=== PATIENT | male | born 1980 | race Caucasian/White ===

== ENCOUNTER 2022-03-19 11:18 | Emergency (ER) | payer OTHER ==
[~2022-03-19] VITALS: Ht 190.5 cm; Wt 127.0 kg
[2022-03-19 11:22] VITALS: BP_SYST 139
--- NOTE | 2022-03-19 11:28 | NUR ---
DR MYERS IN WR LOBBY TO SEE PT
[2022-03-19 11:51] LABS: BASOPHILS # (AUTO) 0.1 K/uL (0.0-0.2); BASOPHILS % (AUTO) 0.4 % (0.0-2.0); EOSINOPHILS % (AUTO) 0.2 % (0.0-4.0); HEMATOCRIT 42.8 % (36-54); HEMOGLOBIN 14.4 g/dL (14.0-18.0); LYMPHOCYTES # (AUTO) 2.1 K/uL (1.0-5.5); LYMPHOCYTES % (AUTO) 10.4 % (20.5-51.5); MEAN CORPUSCULAR HEMOGLOBIN 29 pg (27-31); MEAN CORPUSCULAR HGB CONC 34 % (32-36); MEAN CORPUSCULAR VOLUME 87 fL (79.0-98.0); MONOCYTES # (AUTO) 1.9 K/uL (0.0-1.0); MONOCYTES % (AUTO) 9.5 % (1.7-9.3); NEUTROPHILS % (AUTO) 79.5 % (40.0-70.0); PLATELET COUNT (AUTO) 213 K/uL (130-430); RED BLOOD CELL COUNT(AUTO) 4.93 MIL/uL (4.2-6.2); RED CELL DISTRIBUTION WIDTH 13.7 % (9.0-15.0); WHITE BLOOD COUNT (AUTO) 20.1 K/uL (4.8-10.8)
[2022-03-19 12:11] LABS: CREATININE 0.9 mg/dL (0.55-1.30); POTASSIUM 4.1 mmol/L (3.5-5.1)
[2022-03-19 12:15] LABS: ALBUMIN 3.5 g/dL (3.4-4.8); C-REACTIVE PROTEIN QUANT 17.9 mg/dL (0-0.5); TOTAL BILIRUBIN 1.1 mg/dL (0.0-1.0)
[2022-03-19] MEDS ORDERED: IBUP-1971 PO (13:33)
[2022-03-19] MEDS ORDERED: AMOX-423 PO (13:33)
[2022-03-19] MEDS ORDERED: IBUPROFEN 800 MG TABLET PO ONE (13:45)
[2022-03-19] MEDS ORDERED: AMOXICILLIN/CLAVULANATE POTASSIUM 875 MG TABLET PO ONE (13:45)
--- NOTE | 2022-03-19 13:49 | NUR ---
Patient given written and verbal discharge instructions and verbalizes understanding. ER Dr. Maciel RANDOLPH discussed with patient the results and treatment provided. Patient in stable condition. ID arm band removed. Rx of ibuprofens and augmetin given. Patient educated on pain management and to follow up with PMD. Pain Scale . Opportunity for questions provided and answered. Medication side effect fact sheet provided.
== END 2022-03-19 13:47 | disposition home or self-care (01) ==
LOC: SED 11:18
DX: K57.92 Diverticulitis of intestine, part unspecified, without perforation or abscess without bleeding (principal)
CPT/HCPCS: 36415; 76376; 80053; 82150; 83605; 83690; 85025; 86140; 99284

== ENCOUNTER 2022-03-21 08:29 | Emergency (ER) | payer OTHER ==
[~2022-03-21] VITALS: Ht 190.5 cm; Wt 95.3 kg
[~2022-03-21 08:29] MED LIST: AMOX-423 PO; IBUP-1971 PO
[2022-03-21 08:32] VITALS: BP_SYST 123
--- NOTE | 2022-03-21 08:35 | NUR ---
PT PLACED IN BED
[2022-03-21 09:09] LABS: BASOPHILS # (AUTO) 0.1 K/uL (0.0-0.2); BASOPHILS % (AUTO) 0.6 % (0.0-2.0); EOSINOPHILS # (AUTO) 0.5 K/uL (0.0-0.4); EOSINOPHILS % (AUTO) 4.1 % (0.0-4.0); HEMATOCRIT 41.6 % (36-54); HEMOGLOBIN 14.1 g/dL (14.0-18.0); LYMPHOCYTES # (AUTO) 2.3 K/uL (1.0-5.5); LYMPHOCYTES % (AUTO) 17.4 % (20.5-51.5); MEAN CORPUSCULAR HEMOGLOBIN 29 pg (27-31); MEAN CORPUSCULAR HGB CONC 34 % (32-36); MEAN CORPUSCULAR VOLUME 87 fL (79.0-98.0); MONOCYTES # (AUTO) 1.1 K/uL (0.0-1.0); MONOCYTES % (AUTO) 8.4 % (1.7-9.3); NEUTROPHILS % (AUTO) 69.5 % (40.0-70.0); PLATELET COUNT (AUTO) 223 K/uL (130-430); RED BLOOD CELL COUNT(AUTO) 4.81 MIL/uL (4.2-6.2); RED CELL DISTRIBUTION WIDTH 13.6 % (9.0-15.0); WHITE BLOOD COUNT (AUTO) 12.9 K/uL (4.8-10.8)
--- NOTE | 2022-03-21 09:30 | NUR ---
ERMD AT BEDSIDE
[2022-03-21 09:33] LABS: CALCIUM 8.3 mg/dL (8.4-11.0); CREATININE 0.88 mg/dL (0.55-1.30)
[2022-03-21 09:45] LABS: ALBUMIN 3.2 g/dL (3.4-4.8); TOTAL BILIRUBIN 0.6 mg/dL (0.0-1.0)
[2022-03-21 09:58] LABS: C-REACTIVE PROTEIN QUANT 21.9 mg/dL (0-0.5)
--- NOTE | 2022-03-21 10:02 | NUR ---
A/OX4 VSS, VERBALIZED UNDERSTANDING OF DC INSTRUCTIONS, ALL QUESTIONS ANSWERED, AMBULATED WITH STEADY GAIT.
--- NOTE | 2022-03-21 10:04 | NUR ---
Patient given written and verbal discharge instructions and verbalizes understanding. ER MD discussed with patient the results and treatment provided. Patient in stable condition. Opportunity for questions provided and answered. Medication side effect fact sheet provided.
== END 2022-03-21 10:04 | disposition home or self-care (01) ==
LOC: SED 08:29
DX: K57.92 Diverticulitis of intestine, part unspecified, without perforation or abscess without bleeding (principal); Z79.899 Other long term (current) drug therapy
CPT/HCPCS: 36415; 80053; 82150; 83605; 83690; 85025; 86140; 99283